=== PATIENT | male | born 2005 | race Caucasian/White ===

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

== ENCOUNTER 2025-01-05 18:20 | Emergency (ER) | payer BC, SELFPAY ==
--- NOTE | 2025-01-05 18:22 | ED.GENADULT ---
HPI - General Adult General Time Seen by Provider: 18:22 Date Seen: 01/05/25 Chief complaint: Laceration/Wound Stated complaint: RT Knee cut Time Seen by Provider: 01/05/25 18:22 Source: patient Mode of arrival: ambulatory Limitations: no limitations History of Present Illness HPI narrative: 19-year-old male who comes in today with a laceration any. Patient was at football practice at [employer] and another player's knee brace scraped his knee. He finished practice, wash this in the shower and came to the emergency department for evaluation. Tetanus shot is up-to-date. No other injuries. Related Data Home Medications ?Medication ?Instructions ?Recorded ?Confirmed methylphenidate PO 01/05/25 Allergies Allergy/AdvReac Type Severity Reaction Status Date / Time No Known Drug Allergies Allergy Verified 01/05/25 18:30 PFSH PFSH Social History Smoking Status: Never smoker How often do you have a drink containing alcohol: monthly or less AUDIT-C Alcohol total score: 1 Non-prescribed substance use: denies use Exam Narrative: Exam Narrative: General: well nourished , NAD Head: Atraumatic and normocephalic ENT: External ears and external nose are normal Eyes: Conjunctiva clear, pupils are equal reactive, external ocular motions are intact Neck: Full spontaneous range of motion of the neck Lungs: No respiratory distress Musculoskeletal: No tenderness or deformity Neurologic: No gross focal neurologic deficits Skin: 2 cm partial-thickness curvilinear laceration of the right knee. 3 cm area of ecchymosis on the left medial knee Psych: Mood and affect are appropriate Const: Vital Signs, click to edit/add: Vital Signs - 24 hr 01/05/25 18:24 Temperature 98.6 F Pulse Rate [Right Pulse Oximeter] 89 Respiratory Rate 18 Blood Pressure [Ri ght Upper Arm] 131/87 Pulse Oximetry 96 Oxygen Delivery Me thod Room Air Course Course ED Course: Reviewed prior office visit from June 2024 which was follow-up for concussion. Patient seen examined, presents today with a partial-thickness laceration of the right knee. This was cleaned, and I am unable to spread the wound open with lateral traction and does not significantly gape when patient bends his knee as the partial-thickness. Discussed wound care and stable for discharge. Vital Signs Vital signs: Initial Vital Signs Temperature 98.6 F 01/05/25 18:24 Temperature Source Temporal Artery Scan 01/05/25 18:24 Pulse Rate 89 01/05/25 18:24 Pulse Rhythm Regular 01/05/25 18:24 Pulse Strength 3+ Normal 01/05/25 18:24 Respiratory Rate 18 01/05/25 18:24 Blood Pressure 131/87 01/05/25 18:24 Blood Pressure Mean 101 01/05/25 18:24 Blood Pressure Position Sitting 01/05/25 18:24 Pulse Oximetry 96 01/05/25 18:24 Oxygen Delivery Method Room Air 01/05/25 18:24 Vital Signs Temperature 98.6 F 01/05/25 18:24 Pulse Rate 89 01/05/25 18:24 Respiratory Rate 18 01/05/25 18:24 Blood Pressure 131/87 01/05/25 18:24 Pulse Oximetry 96 01/05/25 18:24 Oxygen Delivery Method Room Air 01/05/25 18:24 Temperature 98.6 F 01/05/25 18:24 Pulse Rate 89 01/05/25 18:24 Respiratory Rate 18 01/05/25 18:24 Blood Pressure 131/87 01/05/25 18:24 Pulse Oximetry 96 01/05/25 18:24 Oxygen Delivery Method Room Air 01/05/25 18:24 Discharge Plan Discharge Clinical Impression: Laceration of knee, right Patient Disposition: Home, Self-Care Condition: Stable Instructions: Laceration (DC) Additional Instructions: Wash gently with soap and water daily Use a Band-Aid or other dressing for the next couple of days to help protect your wound Apply antibiotic ointment daily Activity Level: Activity as Tolerated Discharge Diet: Regular Prescriptions: No Action methylphenidate PO Follow Up/Referrals: Provider,Not a Local [Primary Care Provider, Family Practice] Stand Alone Forms: MyHealth Info Instructions
--- OUTSIDE RECORDS SUMMARY | 2025-01-05 18:22 | XMS_ITS | Clinical Summary ---
Author Organization [facility] Address [address] [place] [address], [place] [address] Care Team Providers Care Wax Coating Machine Tender Name Role Phone Mary Ellen Tello MD Primary Care Provider [phone] Allergies No known active allergies Medications methylphenidate ER 36 mg 24 hr tablet 05/07/2020 Active Active Problems No known active problems Social History Tobacco Use Types Packs/Day Years Used Date Smoking Tobacco: Never Assessed Sex and Gender Information Value Date Recorded Sex Assigned at Not on file Legal Sex Male 8:10 AM EDT Gender Identity Not on file Sexual Orientation Not on file Last Filed Vital Signs Vital Sign Reading Time Taken Comments Blood Pressure 106/72 05/29/2020 4:19 PM EDT Pulse 66 02/06/2024 1:04 PM EDT Temperature 36.7 C (98.1 F) 08/24/2019 10:43 PM EST Respiratory Rate 98 08/24/2019 10:39 PM EST Oxygen Saturation 97% 02/06/2024 1:04 PM EDT Inhaled Oxygen Concentration - - Weight 99.8 kg (220 lb) 05/29/2020 4:19 PM EDT Height 177.8 cm (5' 10) 05/29/2020 4:19 PM EDT Body Mass Index 31.57 05/29/2020 4:19 PM EDT Body Mass Index Percentile 97.84% 05/29/2020 4:1 9 PM EDT Growth Chart: CDC (Boys, 2-2 0 Years) Plan of Treatment Health Maintenance Due Date Last Done Comments Hepatitis C Screening 2005 Depression Screening 2017 HIV Screening 2020 COVID-19 Vaccine ( season) 2024 07/03/2023, 05/31/2022, 07/27/2021, Additional history exists Influenza Vaccine (#1) 2024 , 07/13/2020, 05/21/2015, Additional history exists DTaP,Tdap,and Td Vaccines (8 - Td or Tdap) 02/05/2034 02/06/2024, 07/19/2016, 07/01/2010, Additional history exists Pneumococcal Vaccine: Pediatrics (0 to 5 Years) and At-Risk Patients (6 to 49 Years) Aged Out 06/19/2006, 2005, 2005, Additional history exists No longer eligible based on patient's age to complete this topic HPV Vaccines Completed 09/28/2017, 07/19/2016 Meningococcal B Vaccine Completed 01/31/2023, 11/30 Insurance [facility] [employer] P[employer] Care Teams Wax Coating Machine Tender Relationship Specialty Start Date End Date Mary Ellen Tello MD [facility] [place] [address] PCP - General Pediatrics 08/24/19
--- OUTSIDE RECORDS SUMMARY | 2025-01-05 18:22 | XMS_ITS | Clinical Summary ---
Author Organization [facility] Address [address] [place] [address] Care Team Providers Care Electrician Apprentice Name Role Phone Pcp, No Primary Care Provider Unavailabl e Allergies Active Allergy Reactions Criticality Noted Date Comments Chlorphen-Pseudoephed Tannates *Unknown 06/03 Medications methylphenidate HCl (RITALIN LA ORAL) Take by mouth. Active methylphenidate 54 mg extended-release tablet Take 54 mg by mouth. 05/31/2024 Active loratadine (CLARITIN) 10 mg tablet Take 10 mg by mouth. Active Active Problems Problem Noted Date Diagnosed Date History of ADHD 05/12/2024 Anxiety 05/12/2024 Social History Tobacco Use Types Packs/Day Years Used Date Smoking Tobacco: Some Days Cigars Smokeless Tobacco: Never Tobacco Cessation:Ready to Q uit: Not Asked; Counseling Given: Not Answered Alcohol Use Standard Drinks/Week Comments Yes 0 (1 standard drink = 0.6 oz pur e alcohol) once a week Social Connections Answer Date Recorded Do you often feel lonely or isolated from those around you? 0 05/12/2024 Financial Resource Strain Answer Date R ecorded Difficulty of Paying Living Expenses 3 05/12/2024 Difficulty of Paying Living Expenses Not on file 05/12/2024 Food Insecurity Answer Date Recorded Do you worry your food will run out before you are able to buy more? 1 05/12/2024 Transportation Needs Answer Date Record ed Does lack of transportation keep you from medica l appointments? 1 05/12/2024 Does lack of transportation keep you from work, meetings or getting things that you need? 1 05/12/2024 Housing Stability Answer Date Recorded What is your housing situation today? 1 05/12/2024 Utilities Answer Date Recorded Do you have trouble paying f or utilities (for example, heat, electricity, water, phone)? 1 05/12/2024 Sex and Gender Information Value Date Recorded Sex Assigned at Not on file Legal Sex Male 10:00 AM CDT Gender Identity Not on file Sexual Orientation Not on file Obstetrics History Last Filed Vital Signs Vital Sign Reading Time Taken Comments Blood Pressure 120/84 06/19/2024 8:42 AM CHIEF MEDICAL DIRECTOR Pulse 76 06/19/2024 8:42 AM CHIEF MEDICAL DIRECTOR Temperature 36.6 C (97.9 F) 06/19/2024 8:42 AM CHIEF MEDICAL DIRECTOR Respiratory Rate - - Oxygen Saturation 97% 06/19/2024 8:42 AM CHIEF MEDICAL DIRECTOR Inhaled Oxygen Concentration - - Weight 122.3 kg (269 lb 11.2 oz) 06/19/2024 8:42 AM CHIEF MEDICAL DIRECTOR Height 179.5 cm (5' 10.67) 06/19/2024 8:[address] Body Mass Index 37.97 06/19/2024 8:42 AM CHIEF MEDICAL DIRECTOR Plan of Treatment Health Maintenance Due Date Last Done Comments Well Child Check for age 3-20 05/15/2008 Tdap 2016 Depression screening for age 12+ 2017 HIV for age 15-65 2020 HPV series for age 9-26 (1 - Male 3-dose series) 2020 Hepatitis C screening for ag e 18-79 2023 COVID-19 vaccine series ( - season) 2024 Hepatitis B series for 19+ ( 1 of 3 - 19+ 3-dose series) 2024 Pneumococcal series for age 6-49 (1 of 2 - PCV) 2024 Influenza Vaccine (Season Ended) 2025 BMI (ht and wt on same day) for age 18+ 06/19/2025 06/19/2024, 05/12/2024 Meningococcal series for age 11-21 Aged Out No longer eligible b ased on patient's age to complete this topic Insurance [facility] [place] [address] [place] [address] Care Teams Electrician Apprentice Relationship Specialty Start Date End Date Pcp, No . PCP - General 05/12/24
--- OUTSIDE RECORDS SUMMARY | 2025-01-05 18:22 | XMS_ITS | Referral Summary ---
Author Organization [facility] Address [address] [place] [address], [place] [address] Care Team Providers Care Grease Maker Name Role Phone Mary Ellen Tello MD Primary Care Provider [phone] Allergies No known active allergies Medications methylphenidate [...] (Boys, 2-2 0 Years) Plan of Treatment Not on file Insurance [employer] [address] [place] [address] PPO Care Teams Grease Maker Relationship Specialty Start Date End Date Mary Ellen Tello MD [facility] [place] [id number] PCP - General Pediatrics 08/24/19
--- OUTSIDE RECORDS SUMMARY | 2025-01-05 18:22 | XMS_ITS | Encounter Summary ---
Author Organization [facility] Address [address] [place] [address], [place] [address] Care Team Providers Care Distribution Analyst Name Role Phone Mary Ellen Tello MD Primary Care Provider [phone] Encounter Details Date Type Department Care Team (Late st Contact Info) Description 02/06/2024 Lab Requisition Laboratory Services [address] [place] [phone] Mary Ellen Tello MD [address] [email or web address] [phone] Encounter for screening for lipoid disorders; Encounter for screening for diseases of the blood and blood-forming organs and certain disorders involving the immune mechanism; Encounter for general adult medical examination without abnormal findings Social History Tobacco Use Types Packs/Day Years Used Date Smoking Tobacco: Never Assessed Sex and Gender Information Value Date Recorded Sex Assigned at Not on file Legal Sex Male 8:10 AM EDT Gender Identity Not on file Sexual Orientation Not on file documented as of this encounter Plan of Treatment Not on file documented as of this encounter Procedures Procedure Name Priority Date/Time Associated Diagnosis Comments SICKLE CELL SCREEN Routine 02/06/2024 12 :25 PM EDT Encounter for screening for lipoid disorders Encounter for screening for diseases of the blood and blood-forming organs and certain disorders involving the immune mechanism Encounter for general adult medical examination without abnormal findings LIPID PANEL Routine 02/06/2024 12:25 PM EDT Encounter for screening for lipoid disorders Encounter for screening for diseases of the blood and blood-forming organs and certain disorders involving the immune mechanism Encounter for general adult medical examination without abnormal findings C. TRACHOMATIS / N. GONORRHOEAE, DNA PROBE Routine 02/06/2024 12:00 PM EDT Encounter for screening for lipoid disorders Encounter for screening for diseases of the blood and blood-forming organs and certain disorders involving the immune mechanism Encounter for general adult medical examination without abnormal findings documented in this encounter Results * Lipid panel (02/06/2024 12:25 PM EDT) Cholesterol. 165 mg/dL LAB CHEMISTRY METHOD 02/06/2024 3:10 PM EDT [facility] Comment: Reference Interval: <200 mg/dL Desirable 200-240 mg/dL Borderline >240 mg/dL High Risk Triglyceride. 92 mg/dL LAB CHEMISTRY METHOD 02/06/2024 3:10 PM EDT [facility] Comment: Reference Interval: The National Cholesterol Education Program Adult Treatment Panel III (NCEP- ATP III)6 provides the following categories of triglycerides concentrations: Serum Triglycerides Category mg/dL Normal < 150 Borderline high 150 - 199 High 200 - 499 Very High >= 500 HDL. 45 mg/dL LAB CHEMISTRY METHOD 02/06/2024 3:10 PM EDT [facility] Comment: Expected Values The National Cholesterol Education Program Adult Treatment Panel III (NCEP-ATP III) provides the following classifications of HDL-C concentrations: HDL < 40 mg/dL Major risk factor HDL >= 60 mg/dL Negative risk factor protective against CHD LDL 103 mg/dL LAB CHEMISTRY METHOD 02/06/2024 3:10 PM EDT [facility] Comment: <100 mg/dl Optimal 100 - 129 mg/dl Near/Above Optimal 130 - 159 mg/dl Borderline High 160 - 189 mg/dl High >189 mg/dl Very High Blood Venous blood specimen / Unknown Venipuncture / Unknown 02/06/2024 12:25 PM EDT 02/06/2024 2:11 PM EDT us Mary Ellen Tello MD LAB BLOOD ORDERABLES Final Res ult [facility] [address] [place] [address] * Sickle cell screen (02/06/2024 12:25 PM EDT) Sickle Cell Mary Negative 4 11:10 PM EDT HEALTH Sickle Cell Mary - 4 11:10 PM EDT [facility] Comment:No indication of hem oglobin S Blood Venous blood specimen / Unknown Venipuncture / Unknown 02/06/2024 12:25 PM EDT 02/06/2024 2:11 PM EDT Mary Ellen Tello MD LAB BLOOD ORDERABLES Final Res ult [facility] [address] [place] [id number] * Chlamydia trachomatis and Neisseria gonorrhoeae by PCR Urine, FIRST Catch (02/06/2024 12:00 PM EDT) Pathologist [facility] Chlamydia trachomatis by PCR Not Detected Not Detected 02/06/2024 4:29 PM EDT [facility] Comment:Chlamydia trachomati s target is not detected via PCR. Neisseria gonorrhoeae by PCR Not Detected Not Detected 02/06/2024 4:29 PM EDT [facility] Comment:Neisseria gonorrhoea e target is not detected via PCR. Urine (Urine, FIRST Catch) Non-blood Collection / Unknown 02/06/2024 12:00 PM EDT 02/06/2024 2:11 PM EDT Mary Ellen Tello MD LAB MICROBIOLOGY - GENERAL ORD ERABLES Final Result Performing Organization Address City/[facility]/ZIP Co de Phone Number [facility] [address], [place] [address] documented in this encounter Visit Diagnoses Diagnosis Encounter for screening for lipoid disorders Encounter for screening for diseases of the blood and blood-forming organs and certain disorders involving the immune mechanism Encounter for general adult medical examination without abnormal findings documented in this encounter Care Teams Distribution Analyst Relationship Specialty Start Date End Date Mary Ellen Tello MD [facility] [place] [phone] PCP - General Pediatrics 08/24/19 documented as of this encounter
[2025-01-05 18:24] VITALS: BP 131/87; PULSE 89; RESP 18; TEMP 37; O2SAT 96; BMI 36.1
== END 2025-01-05 18:51 | disposition home or self-care (01) ==
LOC: ED 18:48
PROVIDERS: Emergency Provider Family Medicine
DX: S81.011A Laceration without foreign body, right knee, initial encounter (principal); W22.8XXA Striking against or struck by other objects, initial encounter; Y93.61 Activity, american tackle football
CPT/HCPCS: 99282; 99283